=== PATIENT | female | born 1960 | race Caucasian/White ===

== ENCOUNTER 2019-10-28 08:45 | Inpatient (IN) | payer BC, OTHER ==
[2019-11-08 06:11] LABS: #Basophils 0.1 thou/uL (0.0-0.2); #Eosinphils 0.4 thou/uL (0.0-0.7); #Lymphocytes 2.1 thou/uL (1.20-3.40); #Monocytes 1.1 thou/uL (0.11-0.59); #Neutrophils 8.2 thou/uL (1.40-6.50); %Basophils 0.7 % (0.0-1.0); %Eosinophils 3.6 % (0.0-10.0); %Lymphocytes 17.6 % (21.0-51.0); %Neutrophils 69.1 % (42.0-75.0); Hemoglobin 13.4 g/dL (12.0-16.0); Mean Corpuscular HGB CONC 34.1 g/dL (32.0-36.0); Mean Corpuscular Hemoglobin 30.4 pg (27.0-31.0); Mean Corpuscular Volume 89.1 fL (78.0-98.0); Platelet Count 343 thou/uL (130-400); RBC Distribution Width 13.6 % (11.5-14.5); Red Blood Cell (RBC) Count 4.42 mill/uL (4.20-5.40); White Blood Cell (WBC) Count 11.8 thou/uL (4.8-10.8)
[2019-11-08] MEDS ORDERED: Sodium Chloride 0.9% 100 ML ONE (06:14)
[2019-11-08] MEDS ORDERED: Tranexamic Acid 1,000 MG/10 ML VIAL ONE ×2 (06:14→09:25)
[2019-11-08] MEDS ORDERED: Vancomycin 1 GM/200 ML BAG ONE (06:14)
[2019-11-08] MEDS ORDERED: Midazolam HCl 2 mg/2 ml Vial ONE (06:25)
[2019-11-08] MEDS ORDERED: Fentanyl 100 MCG/2 ML VIAL ONE ×2 (06:25→07:38)
[2019-11-08] MEDS ORDERED: Lidocaine 1% (PF) 30 ML VIAL ONE (06:25)
[2019-11-08] MEDS ORDERED: Bupivacaine PF 0.5% 30 ML VIAL ONE (06:30)
[2019-11-08] MEDS ORDERED: Promethazine HCl 25 MG/ML VIAL IM PRN ×2 (06:52→07:19)
[2019-11-08] MEDS ORDERED: Acetaminophen 325 MG TAB PO PRN ×2 (06:52→07:19)
[2019-11-08] MEDS ORDERED: Ondansetron PF 4 MG/2 ML Vial IVP PRN ×2 (06:52→07:19)
[2019-11-08] MEDS ORDERED: HYDROcodone/Acetaminophen 10/325 mg Tablet PO PRN (06:52)
[2019-11-08] MEDS ORDERED: Ropivacaine HCl/PF 250 ML in Premix Bag 1 BAG NERVE BLCK SCH (06:52)
[2019-11-08] MEDS ORDERED: traMADol HCl 50 MG TAB PO PRN ×2 (06:52)
[2019-11-08] MEDS ORDERED: Zolpidem Tartrate 5 MG TAB PO PRN ×2 (06:52→07:19)
[2019-11-08] MEDS ORDERED: Tranexamic Acid 1,000 MG in Sodium Chloride 0.9% 100 ML IVPB SCH (07:30)
--- NOTE | 2019-11-08 09:43 | OP ---
DATE OF PROCEDURE: 11/08/2019 PREOPERATIVE DIAGNOSIS: Right knee osteoarthrosis. POSTOPERATIVE DIAGNOSES: Right knee osteoarthrosis. PROCEDURE PERFORMED: Right total knee replacement using [employer] pinless navigation. SHORTHAND TEACHER: Santos Roach PA-C ESTIMATED BLOOD LOSS: Minimal. COMPLICATIONS: None. ANESTHESIA: She did have a general anesthetic as well as a preoperative block. IMPLANTS: To the right knee: On the femur, we used a Triathlon cruciate- retaining size 5 femur. On the tibial baseplate, we used a size 4 primary tibial baseplate. We used a 4 x 9 mm CS X3 tibial bearings and an asymmetric 29 x 9 X3 patella. DISPOSITION: She did go to recovery in stable condition. INDICATIONS FOR PROCEDURE: This is a 59 year-old active female, who has gotten injections for years for knee arthritis and at this time wished to have permanent relief of her pain. PROCEDURE IN DETAIL: After all appropriate consent forms were explained and signed, the patient was taken back to the operating room and at this time was given general anesthetic. Once the level of anesthesia was appropriate, a well-padded tourniquet was placed on the right leg, and the leg was then prepped and draped in standard surgical fashion. The limb was exsanguinated and tourniquet taken up to 300 mmHg. Midline incision was made with a 10 blade down through the skin and subcutaneous tissue. Bovie electrocautery was used to coagulate any brisk venous bleeding. A new blade was used to make a medial parapatellar arthrotomy. Small subperiosteal release was performed medially and excess fat pad was removed. The knee was flexed up to gain access to the femur. The femur was navigated and distal femoral resection was made. Epicondylar access was used to align our sizing jig and this was pinned in place. We sized our femur to be a size 5. 4:1 cutting block was applied and pinned. Anterior and posterior chamfer cuts were then made. We navigated out our proximal tibia and made our proximal tibial resection. Spreaders were used to remove any posterior osteophytes off the back of the femur as well as remaining meniscal tissue. A long alignment isaac was then used to achieve correct rotation of our tibial baseplate and a size 4 primary tibial baseplate was chosen. This was pinned in place. We trialed the polyethylene and a 4 x 9 mm CS X3 tibial bearings polyethylene gave us full extension and good stability throughout range of motion. Two towel clips and a saw were used to cut our patella. Three lug nuts were drilled and 29 x 9 X3 patella was trialed which sat nicely in the trochlear groove. We then drilled our femur and punched our tibia. All components were removed. The knee was thoroughly irrigated and dried. Cement was mixed into the cement gun on the back table. Components were then placed. The knee was held out in full extension until the cement had dried. All excess bone cement was removed. Multiple #2 Vicryl stitches as well as a Quill were used to close our extensor mechanism. 0 Quill followed by a running Monoderm was then used to close the skin. Surgicel glue was then used on the skin. Once this had dried, soft tissue dressing was applied to the limb, tourniquet was let down, and the toes pinked up nicely. The patient was then awakened and taken to the recovery room in stable condition. All counts were correct at the end of the case. The patient did receive preoperative IV antibiotics. The patient was injected with Marcaine for postoperative pain relief. Job ID: [id number] MTDD
[2019-11-08 11:02] VITALS: BMI 25.8
[2019-11-08] MEDS: Sodium Chloride 0.9% 1,000 ML IV SCH ×2 (11:40→20:58)
[2019-11-08] MEDS: Aspirin 81 mg Enteric Coated Tablet PO SCH ×2 (11:40→20:57)
[2019-11-08] MEDS: FLUoxetine HCl 20 MG CAP PO SCH (11:41)
[2019-11-08] MEDS: Ketorolac Tromethamine 30 MG/ML VIAL IVP SCH ×3 (11:51→23:24)
[2019-11-08] MEDS ORDERED: Bupivacaine HCl 0.5%/Epinephrine 1:200,000/PF 30 ml Vial ONE (13:33)
[2019-11-08] MEDS ORDERED: Ondansetron PF 4 MG/2 ML Vial ONE (13:33)
[2019-11-08] MEDS ORDERED: Ropivacaine 0.2% HCl/PF (40 MG/20 ML VIAL) ONE (13:33)
[2019-11-08] MEDS ORDERED: Dexamethasone 20 MG/5 ML VIAL ONE (13:33)
[2019-11-08] MEDS ORDERED: EPHEDRINE 25 MG/5 ML SYRINGE ONE (13:33)
[2019-11-08] MEDS ORDERED: PROPOFOL 200 MG/20 ML VIAL ONE (13:33)
[2019-11-08] MEDS ORDERED: Lidocaine 1% PF 5 ML VIAL ONE (13:33)
[2019-11-08] MEDS: CEFAZOLIN 2 GM in Premix Bag 1 BAG IVPB SCH ×2 (14:27→22:19)
[2019-11-08] MEDS ORDERED: Vancomycin 1 GM in Premix Bag 1 BAG IVPB SCH (20:00)
[2019-11-09] MEDS: Fentanyl 100 MCG/2 ML VIAL IV PRN ×2 (00:46→06:50)
[2019-11-09] MEDS: HYDROcodone/Acetaminophen 10/325 mg Tablet PO PRN ×2 (01:18→07:35)
[2019-11-09] MEDS: Sodium Chloride 0.9% 1,000 ML IV SCH ×2 (03:09→14:43)
[2019-11-09] MEDS ORDERED: Morphine 2 MG/ML SYRINGE SLOW IVP SCH (03:30)
[2019-11-09] MEDS: Ketorolac Tromethamine 30 MG/ML VIAL IVP SCH ×2 (05:35→11:39)
[2019-11-09 05:48] LABS: Hemoglobin 10.1 g/dL (12.0-16.0); Mean Corpuscular HGB CONC 34.1 g/dL (32.0-36.0); Mean Corpuscular Hemoglobin 30.6 pg (27.0-31.0); Mean Corpuscular Volume 89.9 fL (78.0-98.0); Mean Platelet Volume 7.8 fL (7.4-10.4); Platelet Count 269 thou/uL (130-400); RBC Distribution Width 13.3 % (11.5-14.5); Red Blood Cell (RBC) Count 3.31 mill/uL (4.20-5.40); White Blood Cell (WBC) Count 11.4 thou/uL (4.8-10.8)
[2019-11-09] MEDS: Ferrous Gluconate 324 MG TAB PO SCH ×2 (08:12→17:26)
[2019-11-09] MEDS: Aspirin 81 mg Enteric Coated Tablet PO SCH ×2 (08:12→20:06)
[2019-11-09] MEDS: FLUoxetine HCl 20 MG CAP PO SCH (08:12)
[2019-11-09] MEDS: Senokot S 8.6-50 MG TAB PO SCH ×2 (08:14→20:06)
[2019-11-09] MEDS: Multivitamin W/ Minerals 1 TAB PO SCH (08:14)
[2019-11-09] MEDS: HYDROmorphone 10 mg/100 ml CADD IV PRN (09:28)
[2019-11-09] MEDS: Acetaminophen 500 MG TAB PO SCH ×3 (09:33→20:14)
[2019-11-09] MEDS: diphenhydrAMINE 25 MG CAP PO PRN (11:51)
--- NOTE | 2019-11-09 15:03 | PRG ---
DATE OF SERVICE: 11/09/2019 SUBJECTIVE: Galilea is a 59-year-old female, postop day 1 from right total knee arthroplasty. She is doing relatively well. She did require MAINTENANCE TEAM MEMBER pump placement for pain control. OBJECTIVE: VITAL SIGNS: Temperature 97.9, pulse 87, respiratory rate 18, blood pressure 120/69. GENERAL: She is alert and oriented to person, place, time, and situation. Responsive and appropriate with examiner. EXTREMITIES: Incision is clean. No strike through. No erythema. She is neurovascularly intact in the right lower extremity. LABORATORY DATA: Hemoglobin and hematocrit 10.1 and 29.8. IMPRESSION: A 59-year-old female, postoperative day 1, right total knee arthroplasty, doing well. PLAN: Continue current care. Probable discharge home tomorrow or the next day if pain control is not optimal. Job ID: [id number]
[2019-11-09] MEDS ORDERED: Gabapentin 300 MG CAP PO SCH (17:30)
[2019-11-09] MEDS ORDERED: CeleCOXIB 100 MG CAP PO SCH (17:30)
[2019-11-09] MEDS: Gabapentin 300 MG CAP PO SCH (20:06)
[2019-11-09] MEDS: CeleCOXIB 100 MG CAP PO SCH (20:06)
[2019-11-09] MEDS ORDERED: Calcium Carbonate 500 MG ChewTAB PO PRN (20:28)
[2019-11-10] MEDS: Sodium Chloride 0.9% 1,000 ML IV SCH ×3 (00:27→19:40)
[2019-11-10] MEDS: Acetaminophen 500 MG TAB PO SCH ×4 (01:57→20:22)
[2019-11-10 06:16] LABS: Hemoglobin 9.9 g/dL (12.0-16.0); Mean Corpuscular HGB CONC 32.7 g/dL (32.0-36.0); Mean Corpuscular Hemoglobin 29.7 pg (27.0-31.0); Mean Corpuscular Volume 90.7 fL (78.0-98.0); Mean Platelet Volume 8.3 fL (7.4-10.4); Platelet Count 262 thou/uL (130-400); RBC Distribution Width 13.3 % (11.5-14.5); Red Blood Cell (RBC) Count 3.33 mill/uL (4.20-5.40); White Blood Cell (WBC) Count 11.8 thou/uL (4.8-10.8)
[2019-11-10] MEDS: HYDROmorphone 10 mg/100 ml CADD IV PRN (07:54)
[2019-11-10] MEDS ORDERED: CeleCOXIB 100 MG CAP PO SCH (09:00)
[2019-11-10] MEDS: Aspirin 81 mg Enteric Coated Tablet PO SCH ×2 (09:27→20:23)
[2019-11-10] MEDS: Gabapentin 300 MG CAP PO SCH ×2 (09:28→20:23)
[2019-11-10] MEDS: FLUoxetine HCl 20 MG CAP PO SCH (09:28)
[2019-11-10] MEDS: Multivitamin W/ Minerals 1 TAB PO SCH (09:28)
[2019-11-10] MEDS: CeleCOXIB 100 MG CAP PO SCH ×2 (09:28→20:23)
[2019-11-10] MEDS: Ferrous Gluconate 324 MG TAB PO SCH ×2 (09:28→16:29)
[2019-11-10] MEDS: Senokot S 8.6-50 MG TAB PO SCH ×3 (09:33→20:35)
[2019-11-10] MEDS: diphenhydrAMINE 25 MG CAP PO PRN (09:52)
[2019-11-10] MEDS ORDERED: fentaNYL 50 mcg/hour Patch TD SCH (16:00)
[2019-11-10] MEDS ORDERED: Gabapentin 300 MG CAP PO SCH (21:00)
[2019-11-11] MEDS: Acetaminophen 500 MG TAB PO SCH ×2 (02:21→08:27)
[2019-11-11 06:13] LABS: Hemoglobin 9.6 g/dL (12.0-16.0); Mean Corpuscular HGB CONC 33.5 g/dL (32.0-36.0); Mean Corpuscular Hemoglobin 30.4 pg (27.0-31.0); Mean Corpuscular Volume 90.7 fL (78.0-98.0); Mean Platelet Volume 8.3 fL (7.4-10.4); Platelet Count 258 thou/uL (130-400); RBC Distribution Width 13.2 % (11.5-14.5); Red Blood Cell (RBC) Count 3.17 mill/uL (4.20-5.40); White Blood Cell (WBC) Count 10.5 thou/uL (4.8-10.8)
[2019-11-11] MEDS: Sodium Chloride 0.9% 1,000 ML IV SCH (06:31)
[2019-11-11] MEDS: Aspirin 81 mg Enteric Coated Tablet PO SCH (08:27)
[2019-11-11] MEDS: FLUoxetine HCl 20 MG CAP PO SCH (08:27)
[2019-11-11] MEDS: Senokot S 8.6-50 MG TAB PO SCH (08:27)
[2019-11-11] MEDS: Multivitamin W/ Minerals 1 TAB PO SCH (08:27)
[2019-11-11] MEDS: CeleCOXIB 100 MG CAP PO SCH (08:28)
[2019-11-11] MEDS: Ferrous Gluconate 324 MG TAB PO SCH (08:28)
[2019-11-11] MEDS ORDERED: Gabapentin 300 MG CAP PO SCH (09:00)
[2019-11-11] MEDS ORDERED: HYDROcodone/Acetaminophen 10/325 mg Tablet PO PRN ×2 (10:20→10:21)
[2019-11-11 11:29] VITALS: BP 110/66; TEMP 98.4
== END 2019-11-11 15:35 | disposition home or self-care (01) | DRG 470 ==
LOC: SJJU 11-08 05:40
PROVIDERS: ADMIT Orthopaedic Surgery; ATTEND Orthopaedic Surgery
PROC: 0SRC0J9 Replacement of Right Knee Joint with Synthetic Substitute, Cemented, Open Approach (ICD-10-PCS; principal; 2019-11-08)
DX: M17.0 Bilateral primary osteoarthritis of knee (principal); C95.90 Leukemia, unspecified not having achieved remission; Z11.59 Encounter for screening for other viral diseases; D64.9 Anemia, unspecified; G25.81 Restless legs syndrome; J30.2 Other seasonal allergic rhinitis; E78.5 Hyperlipidemia, unspecified; F32.9 Major depressive disorder, single episode, unspecified; F41.9 Anxiety disorder, unspecified; F17.210 Nicotine dependence, cigarettes, uncomplicated; M25.761 Osteophyte, right knee; Z79.899 Other long term (current) drug therapy
CPT/HCPCS: 36415; 80048; 81001; 85025; 85027; 85610; 87081; 87635; 90471; 90732; 93005; C1713; C1776; G0009; J0670; J0690; J1100; J1885; J2001; J2250; J2270; J2405; J2704; J2795; J3010; J3370; J3490; Q0163; S0020; U0003

== ENCOUNTER 2019-11-05 07:01 | Outpatient (CLI) | payer BC, OTHER ==
[2019-11-05 17:04] LABS: Bacteria/HPF None Seen HPF (None Seen); Bilirubin Negative (Negative); Blood, Urine 1+ (Negative); Clarity Clear (Clear); Glucose, Urine (Dipstick) Normal (Negative); Leukocyte 25 Leu/uL (Negative); Nitrite Negative (Negative); Protein, Urine (Dipstick) Negative (Neg-Trace); RBC/HPF 0-3 HPF (0-3); Squamous Epithelial 0-3 HPF (0-3); Urobilinogen Normal mg/dL (Less than 2); WBC/HPF 0-3 HPF (0-3)
[2019-11-05 17:06] LABS: INR-International Normal Ratio 0.9; Prothrombin Time 12.3 sec (12.0-14.7)
[2019-11-05 17:23] LABS: Anion Gap 15 mmol/L (10-20); BUN (Urea Nitrogen) 19 mg/dL (9.8-20.1); Calc. Creatinine Clearance 0 mL/min (70-130); Calcium 9.8 mg/dL (7.8-10.44); Carbon Dioxide 23 mmol/L (22-29); Chloride 106 mmol/L (98-107); Estimated GFR-MDRD 76; Glucose 125 mg/dL (70-105); Potassium 3.6 mmol/L (3.5-5.1); Sodium 140 mmol/L (136-145)
[2019-11-05 19:01] LABS: Band 17 % (5-11); Hemoglobin 12.7 g/dL (12.0-16.0); Lymphocytes 1 % (21-51); MDiff Complete? YES; Mean Corpuscular HGB CONC 33.9 g/dL (32.0-36.0); Mean Corpuscular Hemoglobin 30.4 pg (27.0-31.0); Mean Corpuscular Volume 89.6 fL (78.0-98.0); Mean Platelet Volume 8.6 fL (7.4-10.4); Monocytes 8 % (0-10); Neutrophil 73 % (42-75); Platelet Count 336 thou/uL (130-400); Platelet Morphology Comment Appears Adequate; Polychromasia SLIGHT = 2-3 cells (100X) (0-2/hpf); RBC Distribution Width 13.8 % (11.5-14.5); Reactive Lymphocytes 1 % (0-10); Red Blood Cell (RBC) Count 4.17 mill/uL (4.20-5.40); Target Cells SLIGHT = 2-5 cells (100X) (0-1/hpf); White Blood Cell (WBC) Count 25.8 thou/uL (4.8-10.8)
[2019-11-06 16:50] LABS: SARS-CoV-2 MS2 Positive; SARS-CoV-2 N Gene Negative; SARS-CoV-2 S Gene Negative; SARS-CoV-2 orf1ab Negative
== END 2019-11-05 07:02 | disposition home or self-care (01) ==
LOC: LABBT 07:01
PROVIDERS: ATTEND Orthopaedic Surgery
DX: Z01.818 Encounter for other preprocedural examination (principal); Z11.59 Encounter for screening for other viral diseases
CPT/HCPCS: 80048; 81001; 85025; 85610; 87081; 87635; 93005; 93010; U0003

== ENCOUNTER 2019-12-29 09:00 | Inpatient (IN) | payer BC ==
[2019-12-28 10:00] VITALS: BMI 25.5
[2020-01-03] MEDS ORDERED: Sodium Chloride 0.9% 100 ML ONE (06:05)
[2020-01-03] MEDS ORDERED: Vancomycin 1 GM/200 ML BAG ONE (06:05)
[2020-01-03] MEDS ORDERED: Tranexamic Acid 1,000 MG/10 ML VIAL ONE (06:05)
[2020-01-03] MEDS ORDERED: Fentanyl 100 MCG/2 ML VIAL ONE ×2 (06:18→06:31)
[2020-01-03] MEDS ORDERED: Lidocaine 1% (PF) 30 ML VIAL ONE (06:31)
[2020-01-03] MEDS ORDERED: Midazolam HCl 2 mg/2 ml Vial ONE (06:31)
[2020-01-03] MEDS ORDERED: HYDROmorphone 2 MG/ML VIAL SLOW IVP PRN (06:44)
[2020-01-03] MEDS ORDERED: Morphine Sulfate 2 MG/ML SYRINGE SLOW IVP PRN (06:44)
[2020-01-03] MEDS ORDERED: Promethazine HCl 25 MG/ML VIAL SLOW IVP PRN (06:44)
[2020-01-03] MEDS ORDERED: Ondansetron HCl/PF 4 MG/2 ML Vial IVP PRN (06:44)
[2020-01-03] MEDS ORDERED: Promethazine HCl 25 MG/ML VIAL IM PRN ×3 (06:44→07:19)
[2020-01-03] MEDS ORDERED: PACU-Morphine 4MG/ML VIAL SLOW IVP PRN (06:44)
[2020-01-03] MEDS ORDERED: Meperidine HCl/PF 25 MG/ML VIAL SLOW IVP PRN (06:44)
[2020-01-03] MEDS ORDERED: Ropivacaine HCl/PF 250 ML in Premix Bag 1 BAG NERVE BLCK SCH (07:00)
[2020-01-03] MEDS ORDERED: Ondansetron PF 4 MG/2 ML Vial IVP PRN ×2 (07:00→07:19)
[2020-01-03] MEDS ORDERED: traMADol HCl 50 MG TAB PO PRN ×2 (07:00)
[2020-01-03] MEDS ORDERED: HYDROcodone/Acetaminophen 10/325 mg Tablet PO PRN (07:00)
[2020-01-03] MEDS ORDERED: Zolpidem Tartrate 5 MG TAB PO PRN ×2 (07:00→07:19)
[2020-01-03] MEDS ORDERED: Acetaminophen 325 MG TAB PO PRN (07:19)
[2020-01-03] MEDS ORDERED: diphenhydrAMINE 25 MG CAP PO PRN (07:19)
[2020-01-03] MEDS ORDERED: Tranexamic Acid 1,000 MG in Sodium Chloride 0.9% 100 ML IVPB SCH (07:30)
[2020-01-03] MEDS ORDERED: Bupivacaine PF 0.5% 30 ML VIAL ONE (08:11)
[2020-01-03] MEDS ORDERED: Aspirin 81 mg Enteric Coated Tablet PO SCH (09:00)
[2020-01-03] MEDS: Gabapentin 300 MG CAP PO SCH ×2 (09:00→20:18)
[2020-01-03] MEDS ORDERED: HYDROmorphone 0.5 MG/0.5 ML SYRINGE ONE (09:20)
[2020-01-03] MEDS ORDERED: Dexamethasone 20 MG/5 ML VIAL ONE (09:59)
[2020-01-03] MEDS ORDERED: Lidocaine 1% PF 5 ML VIAL ONE (09:59)
[2020-01-03] MEDS ORDERED: Ropivacaine 0.2% HCl/PF (40 MG/20 ML VIAL) ONE (09:59)
[2020-01-03] MEDS ORDERED: Bupivacaine HCl 0.5%/Epinephrine 1:200,000/PF 30 ml Vial ONE (09:59)
[2020-01-03] MEDS ORDERED: EPHEDRINE 25 MG/5 ML SYRINGE ONE (09:59)
[2020-01-03] MEDS ORDERED: Ondansetron PF 4 MG/2 ML Vial ONE (09:59)
[2020-01-03] MEDS ORDERED: PROPOFOL 200 MG/20 ML VIAL ONE (09:59)
--- NOTE | 2020-01-03 11:22 | OP ---
DATE OF PROCEDURE: 01/03/2020 OIL BURNER SERVICER AND INSTALLER: Santos Roach PA-C PREOPERATIVE DIAGNOSIS: Left knee osteoarthrosis. POSTOPERATIVE DIAGNOSIS: Left knee osteoarthrosis. PROCEDURES PERFORMED: Left total knee replacement using [employer] pinless navigation. ESTIMATED BLOOD LOSS: Minimal. COMPLICATIONS: None. IMPLANTS: To the left knee, we used a [employer] Triathlon total knee system. The femur was a size 5 cruciate-retaining femur. We used a size 4 primary tibial baseplate. We used a 4 x 9 mm CS X3 tibial bearing and a 29 x 9 X3 asymmetric patella. DISPOSITION: She went to recovery room in stable condition. INDICATIONS: This is a 59-year-old female, who is presenting for left knee replacement approximately 3 to 4 months after right knee replacement. She has done very well with the former and at this time wished to have her knee replaced. PROCEDURE IN DETAIL: After all appropriate consent forms were explained and signed, the patient was taken back to the operating room and at this time was given general anesthetic. Once the level of anesthesia was appropriate, a well-padded tourniquet was placed on the left leg, and the leg was then prepped and draped in standard surgical fashion. The limb was exsanguinated and tourniquet taken up to 300 mmHg. Midline incision was made with a 10 blade down through the skin and subcutaneous tissue. Bovie electrocautery was used to coagulate any brisk venous bleeding. A new blade was used to make a medial parapatellar arthrotomy. Small subperiosteal release was performed medially and excess fat pad was removed. The knee was flexed up to gain access to the femur. The femur was navigated and distal femoral resection was made. Epicondylar access was used to align our sizing jig and this was pinned in place. We sized our femur to be a size 5 cruciate-retaining femur. 4:1 cutting block was applied and pinned. Anterior and posterior chamfer cuts were then made. We navigated out our proximal tibia and made our proximal tibial resection. Spreaders were used to remove any posterior osteophytes off the back of the femur as well as remaining meniscal tissue. A long alignment isaac was then used to achieve correct rotation of our tibial baseplate and we used a size 4 primary tibial baseplate was chosen. This was pinned in place. We trialed the polyethylene and we used a 4 x 9 mm CS X3 tibial bearing polyethylene gave us full extension and good stability throughout range of motion. Two towel clips and a saw were used to cut our patella. Three lug nuts were drilled and a 29 x 9 X3 asymmetric patella was trialed which sat nicely in the trochlear groove. We then drilled our femur and punched our tibia. All components were removed. The knee was thoroughly irrigated and dried. Cement was mixed into the cement gun on the back table. Components were then placed. The knee was held out in full extension until the cement had dried. All excess bone cement was removed. Multiple #2 Vicryl stitches as well as a Quill were used to close our extensor mechanism. 0 Quill followed by a running Monoderm was then used to close the skin. Surgicel glue was then used on the skin. Once this had dried, soft tissue dressing was applied to the limb, tourniquet was let down, and the toes pinked up nicely. The patient was then awakened and taken to the recovery room in stable condition. All counts were correct at the end of the case. The patient did receive preoperative IV antibiotics. The patient was injected with Marcaine for postoperative pain relief. The seed laboratory assistant surgeon was intimately involved with every portion of the procedure including the approach, placement of the implants and the closure. Job ID: [id number]
[2020-01-03] MEDS: Sodium Chloride 0.9% 1,000 ML IV SCH ×2 (12:03→18:48)
[2020-01-03] MEDS: Aspirin 81 mg Enteric Coated Tablet PO SCH ×2 (12:04→20:18)
[2020-01-03] MEDS: Ketorolac Tromethamine 30 MG/ML VIAL IVP SCH ×3 (13:19→23:12)
[2020-01-03] MEDS: CEFAZOLIN 2 GM in Premix Bag 1 BAG IVPB SCH ×2 (13:19→21:20)
[2020-01-03] MEDS: FLUoxetine HCl 20 MG CAP PO SCH (15:49)
[2020-01-03] MEDS ORDERED: Vancomycin 1.5 GRAM/300 ML BAG 1.5 GM in Premix Bag 1 BAG IVPB SCH (18:00)
[2020-01-03] MEDS: HYDROcodone/Acetaminophen 10/325 mg Tablet PO PRN (20:18)
[2020-01-04] MEDS: HYDROcodone/Acetaminophen 10/325 mg Tablet PO PRN ×6 (00:37→23:20)
[2020-01-04] MEDS: Sodium Chloride 0.9% 1,000 ML IV SCH ×3 (03:33→22:38)
[2020-01-04] MEDS: Ketorolac Tromethamine 30 MG/ML VIAL IVP SCH ×4 (05:02→23:20)
[2020-01-04 05:26] LABS: Hemoglobin 10.3 g/dL (12.0-16.0); Mean Corpuscular HGB CONC 32.6 g/dL (32.0-36.0); Mean Corpuscular Hemoglobin 30.1 pg (27.0-31.0); Mean Corpuscular Volume 92.5 fL (78.0-98.0); Mean Platelet Volume 7.9 fL (7.4-10.4); Platelet Count 338 thou/uL (130-400); RBC Distribution Width 12.5 % (11.5-14.5); Red Blood Cell (RBC) Count 3.41 mill/uL (4.20-5.40); White Blood Cell (WBC) Count 16.7 thou/uL (4.8-10.8)
[2020-01-04] MEDS: FLUoxetine HCl 20 MG CAP PO SCH (08:51)
[2020-01-04] MEDS: Senokot S 8.6-50 MG TAB PO SCH ×2 (08:52→19:54)
[2020-01-04] MEDS: Aspirin 81 mg Enteric Coated Tablet PO SCH ×2 (08:52→19:54)
[2020-01-04] MEDS: Ferrous Gluconate 324 MG TAB PO SCH ×2 (08:53→16:51)
[2020-01-04] MEDS: Gabapentin 300 MG CAP PO SCH ×2 (08:53→19:54)
[2020-01-04] MEDS: Multivitamin W/ Minerals 1 TAB PO SCH (08:53)
[2020-01-04] MEDS: Fentanyl 100 MCG/2 ML VIAL IV PRN ×2 (10:40→19:52)
[2020-01-04] MEDS: Calcium Carbonate 500 MG ChewTAB PO PRN ×2 (12:51→21:06)
--- NOTE | 2020-01-04 13:42 | PRG ---
DATE OF SERVICE: 01/04/2020 SUBJECTIVE: Galilea is a 59-year-old female, postop day #1 from a left total knee arthroplasty. She is doing relatively well and she has very little complaints today. She did have a little pain flare earlier this afternoon, but has been taken care of with the bolus in the block. She has ambulated greater than 50 feet. OBJECTIVE: VITAL SIGNS: Temperature 97.8, pulse 70, respiratory rate 16, and blood pressure is 129/64. GENERAL: She is alert and oriented to person, place, time, situation. Responds with appropriate examiner and conversive. EXTREMITIES: Incision is clean. No strike through. She is neurovascularly intact in the left lower extremity. LABORATORY DATA: Hemoglobin and hematocrit of 10.3 and 31.5. IMPRESSION: A 59-year-old female, postop day #1 left total knee arthroplasty, doing well. PLAN: Continue current care. Probable discharge home tomorrow. Job ID: [id number]
[2020-01-05] MEDS: HYDROcodone/Acetaminophen 10/325 mg Tablet PO PRN ×2 (03:28→08:47)
[2020-01-05 05:16] LABS: Mean Corpuscular HGB CONC 31.3 g/dL (32.0-36.0); Mean Corpuscular Hemoglobin 28.7 pg (27.0-31.0); Mean Corpuscular Volume 91.7 fL (78.0-98.0); Mean Platelet Volume 8.1 fL (7.4-10.4); Platelet Count 280 thou/uL (130-400); RBC Distribution Width 12.7 % (11.5-14.5); Red Blood Cell (RBC) Count 3.15 mill/uL (4.20-5.40); White Blood Cell (WBC) Count 9.2 thou/uL (4.8-10.8)
[2020-01-05] MEDS: Ketorolac Tromethamine 30 MG/ML VIAL IVP SCH (05:20)
[2020-01-05] MEDS: FLUoxetine HCl 20 MG CAP PO SCH (08:44)
[2020-01-05] MEDS: Gabapentin 300 MG CAP PO SCH (08:46)
[2020-01-05] MEDS: Multivitamin W/ Minerals 1 TAB PO SCH (08:46)
[2020-01-05] MEDS: Ferrous Gluconate 324 MG TAB PO SCH (08:46)
[2020-01-05] MEDS: Senokot S 8.6-50 MG TAB PO SCH (08:47)
[2020-01-05] MEDS: Aspirin 81 mg Enteric Coated Tablet PO SCH (08:47)
[2020-01-05] MEDS ORDERED: CeleCOXIB 100 MG CAP PO SCH (09:00)
[2020-01-05] MEDS ORDERED: fentaNYL 50 mcg/hour Patch TD SCH (09:00)
[2020-01-05] MEDS: Calcium Carbonate 500 MG ChewTAB PO PRN (09:45)
[2020-01-05 11:06] VITALS: BP 135/74; TEMP 98.1
== END 2020-01-05 14:20 | disposition home or self-care (01) | DRG 470 ==
LOC: SJJU 01-03 05:40
PROVIDERS: ADMIT Orthopaedic Surgery; ATTEND Orthopaedic Surgery
PROC: 0SRD0J9 Replacement of Left Knee Joint with Synthetic Substitute, Cemented, Open Approach (ICD-10-PCS; principal; 2020-01-03)
DX: M17.12 Unilateral primary osteoarthritis, left knee (principal); F17.200 Nicotine dependence, unspecified, uncomplicated; F32.9 Major depressive disorder, single episode, unspecified; F41.9 Anxiety disorder, unspecified; E78.5 Hyperlipidemia, unspecified; Z79.899 Other long term (current) drug therapy; Z79.82 Long term (current) use of aspirin
CPT/HCPCS: 36415; 85027; C1713; C1776; J0670; J0690; J1100; J1170; J1885; J2001; J2250; J2405; J2704; J2795; J3010; J3370; J3490; S0020

== ENCOUNTER 2019-12-30 06:31 | Outpatient (CLI) | payer BC, OTHER ==
[2019-12-30 16:43] LABS: INR-International Normal Ratio 0.9; Prothrombin Time 12.5 sec (12.0-14.7)
[2019-12-30 16:46] LABS: Bacteria/HPF None Seen HPF (None Seen); Bilirubin Negative (Negative); Blood, Urine Negative (Negative); Clarity Clear (Clear); Glucose, Urine (Dipstick) Normal (Negative); Ketone, Urine Negative (Negative); Leukocyte Negative Leu/uL (Negative); Nitrite Negative (Negative); Protein, Urine (Dipstick) Negative (Neg-Trace); RBC/HPF 0-3 HPF (0-3); Specific Gravity, Urine 1.004 (1.002-1.036); Squamous Epithelial 0-3 HPF (0-3); Urobilinogen Normal mg/dL (Less than 2); WBC/HPF 0-3 HPF (0-3); pH, Urine 5.5 (5.0-9.0)
[2019-12-30 16:48] LABS: #Basophils 0.1 thou/uL (0.0-0.2); #Eosinphils 0.3 thou/uL (0.0-0.7); #Lymphocytes 1.7 thou/uL (1.20-3.40); #Monocytes 0.7 thou/uL (0.11-0.59); #Neutrophils 5.6 thou/uL (1.40-6.50); %Basophils 0.6 % (0.0-1.0); %Eosinophils 3.9 % (0.0-10.0); %Lymphocytes 20.4 % (21.0-51.0); %Monocytes 8.6 % (0.0-10.0); %Neutrophils 66.5 % (42.0-75.0); Mean Corpuscular HGB CONC 32.9 g/dL (32.0-36.0); Mean Corpuscular Volume 91.2 fL (78.0-98.0); Mean Platelet Volume 8.7 fL (7.4-10.4); Platelet Count 414 thou/uL (130-400); RBC Distribution Width 12.9 % (11.5-14.5); Red Blood Cell (RBC) Count 3.99 mill/uL (4.20-5.40); White Blood Cell (WBC) Count 8.4 thou/uL (4.8-10.8)
[2019-12-30 17:03] LABS: Anion Gap 14 mmol/L (10-20); BUN (Urea Nitrogen) 12 mg/dL (9.8-20.1); Calc. Creatinine Clearance 0 mL/min (70-130); Calcium 9.7 mg/dL (7.8-10.44); Carbon Dioxide 24 mmol/L (22-29); Chloride 105 mmol/L (98-107); Estimated GFR-MDRD 76; Glucose 88 mg/dL (70-105); Potassium 4.6 mmol/L (3.5-5.1); Sodium 138 mmol/L (136-145)
[2019-12-31 12:08] LABS: SARS-CoV-2 MS2 Positive; SARS-CoV-2 N Gene Negative; SARS-CoV-2 S Gene Negative; SARS-CoV-2 by NAA Not Detected (NotDetected); SARS-CoV-2 orf1ab Negative
== END 2019-12-30 06:32 | disposition home or self-care (01) ==
LOC: LABBT 06:31
PROVIDERS: ATTEND Orthopaedic Surgery
DX: Z01.818 Encounter for other preprocedural examination (principal); Z11.59 Encounter for screening for other viral diseases; M17.12 Unilateral primary osteoarthritis, left knee
CPT/HCPCS: 80048; 81001; 85025; 85610; 87081; 87635; 93005; 93010; U0003

== ENCOUNTER 2021-02-15 10:00 | Outpatient (CLI) | payer BC ==
[2021-02-15 12:06] LABS: #Basophils 0.1 10x3/uL (0.0-0.2); #Eosinphils 0.5 10x3/uL (0.0-0.5); #Monocytes 0.6 10x3/uL (0.0-1.1); #Neutrophils 4.4 10x3/uL (1.5-8.4); %Basophils 1.1 % (0.0-2.0); %Eosinophils 6.5 % (0.0-6.0); %Lymphocytes 22.9 % (18.0-47.0); %Monocytes 8.4 % (0.0-10.0); %Neutrophils 60.8 % (40.0-75.0); Hemoglobin 13.3 g/dL (12.0-15.5); Mean Corpuscular HGB CONC 31.7 g/dL (32.0-36.0); Mean Corpuscular Hemoglobin 28.8 pg (27.0-33.0); Mean Corpuscular Volume 90.9 fl (81.6-98.3); Mean Platelet Volume 10.3 fl (7.4-10.4); Platelet Count 400 10x3/uL (150-450); RBC Distribution Width 13.5 % (11.5-14.5); Red Blood Cell (RBC) Count 4.62 10x6/uL (3.90-5.03); White Blood Cell (WBC) Count 7.2 10x3/uL (3.5-10.5)
[2021-02-15 12:14] LABS: Anion Gap 15 mmol/L (10-20); BUN (Urea Nitrogen) 15 mg/dL (9.8-20.1); Calc. Creatinine Clearance 0 mL/min (70-130); Calcium 10.6 mg/dL (7.8-10.44); Carbon Dioxide 25 mmol/L (22-29); Chloride 106 mmol/L (98-107); Glucose 92 mg/dL (70-105); Potassium 4.7 mmol/L (3.5-5.1); Sodium 141 mmol/L (136-145)
[2021-02-16 00:34] LABS: SARS-CoV-2 PCR by NAA Not Detected (NotDetected)
== END 2021-02-15 10:01 | disposition home or self-care (01) ==
LOC: LABBT 10:00
PROVIDERS: ATTEND Orthopaedic Surgery
DX: Z01.818 Encounter for other preprocedural examination (principal); M19.012 Primary osteoarthritis, left shoulder; Z20.822 Contact with and (suspected) exposure to COVID-19
CPT/HCPCS: 80048; 85025; 93005; 93010; U0003; U0005

== ENCOUNTER 2021-02-20 05:47 | Day surgery (SDC) | payer BC ==
[2021-02-19 09:58] VITALS: BMI 27.3
[2021-02-20] MEDS ORDERED: Phenylephrine 10 MG/ML VIAL ONE (05:51)
[2021-02-20] MEDS ORDERED: Fentanyl 100 MCG/2 ML VIAL ONE ×2 (05:51→06:34)
[2021-02-20] MEDS ORDERED: Lidocaine 2% Jelly 5 ML TUBE ONE (05:51)
[2021-02-20] MEDS ORDERED: Tranexamic Acid 1,000 MG/10 ML VIAL ONE (05:59)
[2021-02-20] MEDS ORDERED: Sodium Chloride 0.9% 100 ML ONE (06:00)
[2021-02-20] MEDS ORDERED: Vancomycin HCl 1.5 GM in Sodium Chloride 0.9% 250 ML 300 ML IVPB SCH (06:15)
[2021-02-20] MEDS ORDERED: CEFAZOLIN 2 GM in Premix Bag 1 BAG IVPB SCH (06:15)
[2021-02-20] MEDS ORDERED: Midazolam HCl 2 mg/2 ml Vial ONE ×2 (06:19→06:34)
[2021-02-20] MEDS ORDERED: Lidocaine 1% (PF) 30 ML VIAL ONE (06:34)
[2021-02-20] MEDS ORDERED: PROPOFOL 200 MG/20 ML VIAL ONE (07:14)
[2021-02-20] MEDS ORDERED: Dexamethasone 20 MG/5 ML VIAL ONE (07:14)
[2021-02-20] MEDS ORDERED: Rocuronium Bromide 10 MG/ML (10ML VIAL) ONE (07:14)
[2021-02-20] MEDS ORDERED: Ropivacaine 0.5% HCl/PF (150 MG/30 ML VIAL) ONE (07:14)
[2021-02-20] MEDS ORDERED: Ondansetron PF 4 MG/2 ML Vial ONE (07:14)
[2021-02-20] MEDS ORDERED: Glycopyrrolate 0.2 MG/ML 5 ML SYRINGE ONE ×2 (07:14)
[2021-02-20] MEDS ORDERED: PHENYLEPHRINE-NS 100 MCG/ML 10 ML SYRINGE ONE (07:14)
[2021-02-20] MEDS ORDERED: ePHEDrine 50 MG/ML VIAL ONE (07:14)
[2021-02-20] MEDS ORDERED: Ondansetron PF 4 MG/2 ML Vial IVP PRN (07:30)
[2021-02-20] MEDS ORDERED: Ropivacaine 0.2% 550 ML 550 ML NERVE BLCK SCH (07:30)
[2021-02-20] MEDS ORDERED: Zolpidem Tartrate 5 MG TAB PO PRN (07:30)
[2021-02-20] MEDS ORDERED: traMADol HCl 50 MG TAB PO PRN ×2 (07:30)
[2021-02-20] MEDS ORDERED: HYDROcodone/Acetaminophen 5/325 mg Tablet PO PRN ×2 (07:30)
[2021-02-20] MEDS ORDERED: Promethazine HCl 25 MG/ML VIAL IM PRN (07:30)
[2021-02-20] MEDS ORDERED: Ketorolac Tromethamine 30 MG/ML VIAL IVP SCH (12:00)
== END 2021-02-20 11:45 | disposition home or self-care (01) ==
LOC: SDC 05:47
PROVIDERS: ATTEND Orthopaedic Surgery
PROC: 0RRK0JZ Replacement of Left Shoulder Joint with Synthetic Substitute, Open Approach (ICD-10-PCS; principal; 2021-02-20)
PROC: 3E0T3BZ Introduction of Anesthetic Agent into Peripheral Nerves and Plexi, Percutaneous Approach (ICD-10-PCS; principal; 2021-02-20)
DX: M19.012 Primary osteoarthritis, left shoulder (principal); M75.22 Bicipital tendinitis, left shoulder; G25.81 Restless legs syndrome; E78.5 Hyperlipidemia, unspecified; G89.29 Other chronic pain; Z79.82 Long term (current) use of aspirin; Z79.899 Other long term (current) drug therapy; Z96.653 Presence of artificial knee joint, bilateral; Z98.1 Arthrodesis status
CPT/HCPCS: A4306; C1713; J0690; J1100; J2001; J2250; J2370; J2405; J2704; J2795; J3010; J3370; J3490; J7050

== ENCOUNTER 2022-02-15 12:54 | Outpatient (CLI) | payer BC | END 2022-02-15 12:55 | disposition home or self-care (01) | LOC: SCSMRI 12:54 | PROVIDERS: ATTEND Family Medicine | DX: M47.26 Other spondylosis with radiculopathy, lumbar region (principal); M47.27 Other spondylosis with radiculopathy, lumbosacral region; M47.25 Other spondylosis with radiculopathy, thoracolumbar region; M51.16 Intervertebral disc disorders with radiculopathy, lumbar region | CPT/HCPCS: 72148 ==

== ENCOUNTER 2022-02-21 05:53 | Observation (INO) | payer BC ==
[2022-02-19 15:14] VITALS: BMI 26.6
[2022-02-21] MEDS ORDERED: Vancomycin (BATCH) 1.5 GRAM/300 ML BAG ONE (06:34)
[2022-02-21] MEDS ORDERED: Tranexamic Acid 1,000 MG/10 ML VIAL ONE (06:34)
[2022-02-21] MEDS ORDERED: Sodium Chloride 0.9% 100 ML ONE ×2 (06:34→07:07)
[2022-02-21] MEDS ORDERED: Lidocaine 1% MPF 2 ML VIAL ONE ×2 (07:05→07:58)
[2022-02-21] MEDS ORDERED: Fentanyl 100 MCG/2 ML VIAL ONE ×2 (07:05→09:54)
[2022-02-21] MEDS ORDERED: Midazolam HCl 2 mg/2 ml Vial ONE (07:05)
[2022-02-21] MEDS ORDERED: CEFAZOLIN 2 GM VIAL ONE (07:07)
[2022-02-21] MEDS ORDERED: HYDROcodone/Acetaminophen 10/325 mg Tablet PO PRN ×2 (07:29)
[2022-02-21] MEDS ORDERED: Non-Formulary Item 1 EACH (Evolocumab [Repatha Syringe] 140 MG/ML Syringe) SC SCH (07:30)
[2022-02-21] MEDS ORDERED: Rocuronium Bromide 10 MG/ML (10ML VIAL) ONE (07:58)
[2022-02-21] MEDS ORDERED: Dexamethasone 20 MG/5 ML VIAL ONE (07:58)
[2022-02-21] MEDS ORDERED: PROPOFOL 200 MG/20 ML VIAL ONE (07:58)
[2022-02-21] MEDS ORDERED: Ropivacaine 0.5% HCl/PF (150 MG/30 ML VIAL) ONE (07:58)
[2022-02-21] MEDS ORDERED: Ondansetron PF 4 MG/2 ML Vial ONE (07:58)
[2022-02-21] MEDS ORDERED: Evolocumab [Repatha Syringe] 140 MG/ML Syringe SC SCH (08:00)
[2022-02-21] MEDS ORDERED: Fentanyl 100 MCG/2 ML VIAL IV PRN (08:38)
[2022-02-21] MEDS ORDERED: Ropivacaine 0.2% 550 ML 550 ML NERVE BLCK SCH (08:45)
[2022-02-21] MEDS ORDERED: Zolpidem Tartrate 5 MG TAB PO PRN (08:45)
[2022-02-21] MEDS ORDERED: traMADol HCl 50 MG TAB PO PRN ×2 (08:45)
[2022-02-21] MEDS ORDERED: Ondansetron PF 4 MG/2 ML Vial IVP PRN (08:45)
[2022-02-21] MEDS ORDERED: Promethazine HCl 25 MG/ML VIAL IM PRN ×2 (08:45→09:47)
[2022-02-21] MEDS ORDERED: Non-Formulary Item 1 EACH (Fluoxetine Hcl [Fluoxetine Hcl] 20 MG Tablet) PO SCH (09:00)
[2022-02-21] MEDS ORDERED: Non-Formulary Item 1 EACH (Bupropion Hcl [Wellbutrin Xl] 300 MG Tab.Er.24h) PO SCH (09:00)
[2022-02-21] MEDS ORDERED: SUGAMMADEX SODIUM 200 MG/2 ML VIAL ONE (09:28)
[2022-02-21] MEDS ORDERED: Ondansetron HCl/PF 4 MG/2 ML Vial IVP PRN (09:47)
[2022-02-21] MEDS ORDERED: Promethazine HCl 25 MG/ML VIAL IVPB PRN (09:47)
[2022-02-21] MEDS: Dextrose 5 %-0.45 % NaCl 1,000 ML IV SCH (12:43)
[2022-02-21] MEDS: HYDROcodone/Acetaminophen 10/325 mg Tablet PO PRN ×3 (12:43→19:36)
[2022-02-21] MEDS: Bupropion 150 MG XL TAB PO SCH (12:47)
[2022-02-21] MEDS: FLUoxetine HCl 20 MG CAP PO SCH (12:47)
[2022-02-21] MEDS: CEFAZOLIN 2 GM in Sodium Chloride 0.9% 100 ML IVPB SCH ×2 (15:13→21:47)
[2022-02-22] MEDS: HYDROcodone/Acetaminophen 10/325 mg Tablet PO PRN ×2 (01:09→09:14)
[2022-02-22] MEDS: Dextrose 5 %-0.45 % NaCl 1,000 ML IV SCH (01:12)
[2022-02-22 08:30] VITALS: BP 131/72; TEMP 97.8
[2022-02-22] MEDS: Bupropion 150 MG XL TAB PO SCH (09:09)
[2022-02-22] MEDS: FLUoxetine HCl 20 MG CAP PO SCH (09:09)
== END 2022-02-22 10:58 | disposition home or self-care (01) ==
LOC: SDC 05:53 → SURG B 07:32
PROVIDERS: ADMIT Orthopaedic Surgery; ATTEND Orthopaedic Surgery
PROC: 0RRJ0JZ Replacement of Right Shoulder Joint with Synthetic Substitute, Open Approach (ICD-10-PCS; principal; 2022-02-21)
DX: M19.011 Primary osteoarthritis, right shoulder (principal); G25.81 Restless legs syndrome; E78.5 Hyperlipidemia, unspecified; Z79.899 Other long term (current) drug therapy; Z96.612 Presence of left artificial shoulder joint; Z96.653 Presence of artificial knee joint, bilateral
CPT/HCPCS: A4306; C1713; C1776; J0690; J1100; J2250; J2405; J2704; J2795; J3010; J3370; J3490; J7042